=== PATIENT | female | born 1970 | race Caucasian/White ===

== ENCOUNTER 2023-07-12 18:12 | Emergency (ER) | payer MEDICAID ==
[~2023-07-12] VITALS: Ht 170.2 cm; Wt 80.7 kg
[2023-07-12] MEDS ORDERED: ONDANSETRON HCL/PF 4 MG/2 ML VIAL IVP ONE (19:00)
[2023-07-12] MEDS ORDERED: HYDROMORPHONE INJ 2 MG/ML DISP.SYRIN IV ONE (19:00)
[2023-07-12] MEDS ORDERED: HYDROMORPHONE 1 MG/1 ML DISP.SYRIN ONE (19:02)
[2023-07-12] MEDS ORDERED: ONDANSETRON HCL/PF 4 MG/2 ML VIAL ONE (19:02)
[2023-07-13] MEDS ORDERED: HYDROMORPHONE 1 MG/1 ML DISP.SYRIN ONE (05:24)
[2023-07-13] MEDS ORDERED: HYDROMORPHONE 1 MG/1 ML DISP.SYRIN IV ONE (05:30)
[2023-07-13] MEDS ORDERED: KETOROLAC TROMETHAMINE 15 MG/ML VIAL ONE (11:46)
[2023-07-13] MEDS ORDERED: KETOROLAC TROMETHAMINE 15 MG/ML VIAL IV ONE (12:00)
[2023-07-13 12:58] VITALS: BP 121/68; TEMP 98.7; O2SAT 98
== END 2023-07-13 12:59 | disposition home or self-care (01) ==
LOC: ER 18:19
DX: J95.03 Malfunction of tracheostomy stoma (principal); Z88.5 Allergy status to narcotic agent; Z88.8 Allergy status to other drugs, medicaments and biological substances
CPT/HCPCS: 99285; 96374; 96375 ×2; 94799 ×2; 96376; 31720 ×2; J2405; J1170 ×2; J1885; 94002-TC; 94003-TC